=== PATIENT | female | born 1935 | race Caucasian/White ===

== ENCOUNTER 2018-07-04 17:18 | Outpatient (REF) | payer MEDICARE, SELFPAY ==
[2018-07-04 19:18] LABS: HCT 41.2 % (36.0-46.0); HGB 13.8 g/dL (12.0-15.5); Mean Corp. HGB Concentration 33.5 g/dL (32.0-36.0); Mean Corpuscular Hemoglobin 30.3 pg (27.0-33.0); Mean Corpuscular Volume 90.4 fL (80-95); Mean Platelet Volume 10.2 fL (8.0-11.0); Platelet Count 226 x1000/uL (130-400); RBC 4.56 m/cumm (4.00-5.20); RBC Distribution Width 15.6 % (11.7-14.6); White Blood Cell Count 7.98 k/cumm (4.4-10.8)
[2018-07-04 19:29] LABS: ALT 22 U/L (12-78); Albumin 3.5 g/dL (3.4-5.0); Anion Gap 7.9 mmol/L (3-11); BUN 20 mg/dL (7-18); CO2 32.1 mmol/L (21.0-32.0); CREATININE 1.24 mg/dL (0.55-1.02); Calcium 9.6 mg/dL (8.5-10.1); Chloride 97 mmol/L (98-107); Estimated GFR 41.41 (mL/min/1.73m2); Glucose 122 mg/dL (70-100); PHOSPHORUS 2.9 mg/dL (2.6-4.7); Potassium 4.1 mmol/L (3.5-5.1); Sodium 137 mmol/L (136-145)
== END 2018-07-04 17:38 ==
LOC: NCHCN 17:18
PROVIDERS: PCP Internal Medicine; Visit Provider Internal Medicine
DX: E11.9 Type 2 diabetes mellitus without complications (principal); I83.009 Varicose veins of unspecified lower extremity with ulcer of unspecified site; M54.5 Low back pain
CPT/HCPCS: 80069; 85027; 84460

== ENCOUNTER 2018-12-26 15:41 | Outpatient (REF) | payer MEDICARE, SELFPAY ==
[2018-12-26 20:08] LABS: Reticulocyte 1.2 % (0.5-2.4)
[2018-12-26 20:09] LABS: Iron 42 ug/dL (50-175); Total Iron Binding Capacity 295 ug/dL (250-450); Transferrin Sat 14 % (15-50)
[2018-12-26 20:36] LABS: Ferritin 105 ng/mL (8-388); Vitamin B12 357 pg/mL (193-986)
== END 2018-12-26 16:01 ==
LOC: NCHCN 15:41
PROVIDERS: PCP Internal Medicine; Visit Provider Internal Medicine
DX: E11.9 Type 2 diabetes mellitus without complications (principal); N18.3 Chronic kidney disease, stage 3 (moderate); I83.009 Varicose veins of unspecified lower extremity with ulcer of unspecified site
CPT/HCPCS: 82607; 82728; 83540; 83550; 85045

== ENCOUNTER 2019-05-06 21:03 | Outpatient (REF) | payer MEDICARE, SELFPAY ==
[2019-05-06 20:48] LABS: HCT 40.8 % (36.0-46.0); HGB 12.9 g/dL (12.0-15.5); Mean Corp. HGB Concentration 31.6 g/dL (32.0-36.0); Mean Corpuscular Hemoglobin 29.1 pg (27.0-33.0); Mean Corpuscular Volume 91.9 fL (80-95); Mean Platelet Volume 9.9 fL (8.0-11.0); Platelet Count 211 x1000/uL (130-400); RBC 4.44 m/cumm (4.00-5.20); RBC Distribution Width 14.5 % (11.7-14.6); White Blood Cell Count 6.47 k/cumm (4.4-10.8)
[2019-05-06 20:55] LABS: ALT 15 U/L (14-59); Anion Gap 5.3 mmol/L (3-11); BUN 17 mg/dL (7-18); CO2 35.7 mmol/L (21.0-32.0); CREATININE 0.96 mg/dL (0.55-1.02); Calcium 9.5 mg/dL (8.5-10.1); Chloride 99 mmol/L (98-107); Glucose 141 mg/dL (74-106); LDL CHOLESTEROL 76 mg/dL (<100); Potassium 4.2 mmol/L (3.5-5.1); Sodium 140 mmol/L (136-145)
== END 2019-05-06 21:23 ==
LOC: NCHCN 21:03
PROVIDERS: PCP Internal Medicine; Visit Provider Internal Medicine
DX: E11.9 Type 2 diabetes mellitus without complications (principal); N18.3 Chronic kidney disease, stage 3 (moderate); I10 Essential (primary) hypertension; I83.009 Varicose veins of unspecified lower extremity with ulcer of unspecified site; M54.5 Low back pain
CPT/HCPCS: 80048; 83721; 85027; 84460

== ENCOUNTER 2020-01-11 18:05 | Outpatient (REF) | payer MEDICARE, SELFPAY ==
[2020-01-14 12:50] LABS: Patient Race White; SARS-CoV-2 RNA Undetected (Undetected); SARS-CoV-2 Specimen Source Nasopharynx
== END 2020-01-11 18:25 ==
LOC: NCHCN 18:05
PROVIDERS: PCP Internal Medicine; Visit Provider Internal Medicine
DX: R05 Cough (principal)
CPT/HCPCS: U0003

== ENCOUNTER 2020-07-11 17:15 | Outpatient (REF) | payer OTHER, SELFPAY ==
[2020-07-11 18:53] LABS: HCT 37.3 % (36.0-46.0); HGB 12.5 g/dL (11.2-15.7); MCH 29.8 pg (27.0-33.0); MCHC 33.5 % (32.0-36.0); MPV 10.2 fL (8.0-11.0); Platelet Count 230 10^3/uL (130-400); RBC 4.19 10^6/uL (3.93-5.22); RDW 13.3 % (11.7-14.6); RDW-SD 43.7 fL; WBC 10.26 10^3/uL (4.4-10.8)
[2020-07-11 19:13] LABS: Anion Gap 9.4 mmol/L (3-11); BUN 22 mg/dL (7-18); CO2 31.6 mmol/L (21.0-32.0); CREATININE 1.6 mg/dL (0.55-1.02); Calcium 9.2 mg/dL (8.5-10.1); Chloride 93 mmol/L (98-107); Estimated GFR 30.71 (mL/min/1.73m2); Glucose 220 mg/dL (74-106); PHOSPHORUS 3.1 mg/dL (2.6-4.7); Sodium 134 mmol/L (136-145)
[2020-07-11 19:37] LABS: Potassium 2.6 mmol/L (3.5-5.1)
== END 2020-07-11 17:16 | disposition home or self-care (01) ==
LOC: NCHCN 17:15
PROVIDERS: PCP Internal Medicine; Visit Provider Internal Medicine
DX: E11.9 Type 2 diabetes mellitus without complications (principal); K29.70 Gastritis, unspecified, without bleeding; N18.30 Chronic kidney disease, stage 3 unspecified
CPT/HCPCS: 80069; 85027

== ENCOUNTER 2020-07-15 18:10 | Outpatient (REF) | payer OTHER, SELFPAY ==
[2020-07-15 19:14] LABS: Potassium 3.3 mmol/L (3.5-5.1)
== END 2020-07-15 18:11 | disposition home or self-care (01) ==
LOC: NCHCN 18:10
PROVIDERS: PCP Internal Medicine; Visit Provider Internal Medicine
DX: E87.6 Hypokalemia (principal)
CPT/HCPCS: 84132

== ENCOUNTER 2020-08-01 19:05 | Outpatient (REF) | payer OTHER, SELFPAY ==
[2020-08-01 19:21] LABS: HCT 40.5 % (36.0-46.0); HGB 13.3 g/dL (11.2-15.7); MCH 29.8 pg (27.0-33.0); MCHC 32.8 % (32.0-36.0); MCV 90.8 fL (80-95); Platelet Count 269 10^3/uL (130-400); RBC 4.46 10^6/uL (3.93-5.22); RDW 14.1 % (11.7-14.6); RDW-SD 47.2 fL
[2020-08-01 19:30] LABS: Anion Gap 6.5 mmol/L (3-11); BUN 23 mg/dL (7-18); CO2 31.5 mmol/L (21.0-32.0); CREATININE 1.2 mg/dL (0.55-1.02); Calcium 9.4 mg/dL (8.5-10.1); Chloride 95 mmol/L (98-107); Glucose 196 mg/dL (74-106); Potassium 3.9 mmol/L (3.5-5.1); Sodium 133 mmol/L (136-145)
== END 2020-08-01 19:06 | disposition home or self-care (01) ==
LOC: NCHCN 19:05
PROVIDERS: PCP Internal Medicine; Visit Provider Internal Medicine
DX: R53.83 Other fatigue (principal); E87.6 Hypokalemia
CPT/HCPCS: 80048; 85027